=== PATIENT | female | born 1995 | race Caucasian/White ===

== ENCOUNTER 2019-03-07 10:22 | Emergency (ER) | payer SELFPAY ==
[2019-03-07 10:59] LABS: Bilirubin Negative (Negative); Blood, Urine Negative (Negative); Clarity Clear (Clear); Glucose, Urine (Dipstick) Normal (Negative); Leukocyte 250 Leu/uL (Negative); Nitrite Negative (Negative); Protein, Urine (Dipstick) Negative (Neg-Trace); RBC/HPF 0-3 HPF (0-3); Squamous Epithelial 0-3 HPF (0-3); Urobilinogen Normal mg/dL (Less than 2); WBC/HPF 0-3 HPF (0-3)
[2019-03-07 11:08] LABS: Bacteria/HPF Rare-Few HPF (None Seen); Calcium Oxalate Crystals 1+ HPF (None Seen)
[2019-03-07 11:13] LABS: BHCG - Serum Negative (NEGATIVE); Pregs Control Background? CLEAR/WHITE (CLR/WHITE); Pregs Control Bar Appear? YES (CONTROL BAR)
[2019-03-07 11:15] LABS: Pregnancy Test - Urine (BHCG) Negative (Negative); Pregu Control Background? CLEAR/WHITE (CLR/WHITE); Pregu Control Bar Appear? YES (CONTROL BAR); Specific Gravity 1.025 (1.002-1.036)
[2019-03-07] MEDS ORDERED: cefTRIAXone\\ROCEPHIN 250 MG VIAL ONE (11:19)
[2019-03-07] MEDS ORDERED: Azithromycin 250 MG TAB ONE (11:19)
[2019-03-07] MEDS ORDERED: Lidocaine 1% PF 5 ML VIAL ONE (11:19)
== END 2019-03-07 12:04 | disposition home or self-care (01) ==
LOC: ERS 10:22
DX: N76.0 Acute vaginitis (principal)
CPT/HCPCS: 36415; 81003; 81015; 81025; 84703; 99283; J0696; J2001